=== PATIENT | female | born 1990 | race Two or more races ===

== ENCOUNTER 2024-10-06 14:20 | Emergency (ER) | payer MEDICAID, SELFPAY ==
[2024-10-06 14:21] VITALS: BMI 43.4
[2024-10-06 14:27] VITALS: BP 142/83; PULSE 117; RESP 19; TEMP 39.2; O2SAT 99
--- NOTE | 2024-10-06 14:39 | XR_ITS ---
Examination: PA lateral chest 2 views Technique: Upright PA lateral chest 2 views Exam date and time: October 06, 2024 1500 hrs. Indications: Coughing 5 days Findings: Pneumonia in the lingular segment left upper lobe Normal heart size Right lung clear Intact osseous structures Impression: Pneumonia lingular segment left upper lobe
--- NOTE | 2024-10-06 14:39 | XR_ITS ---
Examination: CT brain head without contrast. 2-D sagittal coronal reconstructions Date and time of exam:October 06, 2024 1445 hrs. Indications: Onset generalized head pain today CTDI: vol (mGy):52.4 DLP: (mGycm):953 Technique: Multiple CT axial sections of the brain have been obtained, 5 mm slice thickness. Contrast has not been administered. 2-D sagittal, coronal reconstructions have been obtained Low dose protocols were performed. One or more of the following dose reduction techniques were used; automated exposure control, adjustment of the mA and/or KV according to patient size, use of iterative reconstruction technique. Findings: No significant ventricular enlargement. Intra-axial or extra-axial hemorrhage density is not seen. No mass effect or midline shift Basal cisterns are not remarkable. Fourth ventricle is midline. Cranial vault intact. Impression: Negative for acute hemorrhage, mass effect or midline shift
--- NOTE | 2024-10-06 14:40 | PD.EDRME ---
Rapid Medical Screening Exam RME Arrival date/time: 10/06/24 14:20 34-year-old female presents emergency department complaints of fever, cough, headache, nasal congestion and bodyaches Chief Complaint: Flu Like Symptoms Vital signs: Vital Signs Temperature 102.5 F H 10/06/24 14:27 Pulse Rate 117 H 10/06/24 14:27 Respiratory Rate 19 10/06/24 14:27 Blood Pressure 142/83 H 10/06/24 14:27 Pulse Oximetry (%) 99 10/06/24 14:27 Oxygen Delivery Method Room Air 10/06/24 14:27
[2024-10-06 14:42] VITALS: TEMP 39.2
[2024-10-06] MEDS: ACETAMINOPHEN 500 MG TABLET 1000 MG PO (14:42)
[2024-10-06 15:22] LABS: Lactate (Lactic Acid) 2.4 mMol/L (0.4-2.0)
[2024-10-06 15:23] LABS: Basophils % (Auto) 0 % (0-2.5); Eosinophils # (Auto) 0.1 Thou/mm3 (0.0-0.5); Eosinophils % (Auto) 1 % (0-10); Hematocrit 40.3 % (36.0-46.0); Hemoglobin 13.2 g/dL (12.0-16.0); Immature Granulocytes % (Auto) 0 % (0-0); Immature Granulocytes Auto 0.02 Thou/mm3 (0.00-0.00); Lymphocytes # (Auto) 1.8 Thou/mm3 (1.0-4.8); Lymphocytes % (Auto) 23 % (10-50); Mean Corpuscular HGB Conc 32.8 g/dl (31.0-37.0); Mean Corpuscular Hemoglobin 27.5 pg (25.0-35.0); Mean Corpuscular Volume 84 fL (80-100); Monocytes # (Auto) 0.6 Thou/mm3 (0.0-0.8); Monocytes % (Auto) 7 % (0-12); Neutrophils # (Auto) 5.3 Thou/mm3 (1.8-7.7); Neutrophils % (Auto) 68 % (37-80); Nucleated Red Blood Cell % 0 /100 WBC (0); Platelet Count 290 Thou/mm3 (140-440); RDW Standard Deviation 41.1 fL (36.4-46.3); White Blood Count 7.8 Thou/mm3 (3.6-11.0)
[2024-10-06 16:03] LABS: Alanine Aminotransferase 24 U/L (10-49); Albumin, Serum 4.3 gm/dL (3.5-5.0); Albumin/Globulin Ratio 1.5 (1.2-2.2); Alkaline Phosphatase 80 U/L (46-116); Anion Gap 5 (7-16); Aspartate Amino Transferase 20 U/L (0-34); BUN/Creatinine Ratio 8 Ratio (12-20); Bilirubin,Total 0.4 mg/dL (0.3-1.2); Blood Urea Nitrogen 6 mg/dL (9-23); Calcium 9.1 mg/dL (8.3-10.6); Calcium (Corrected) 9.1 mg/dL (8.5-10.1); Carbon Dioxide 26.9 mMol/L (20.0-31.0); Chloride 104 mMol/L (98-107); Creatinine (Component) 0.8 mg/dL (0.6-1.3); Estimated Creatinine Clearance 112.2 mL/min (>60); Globulin 2.8 gm/dL (2.3-3.5); Glucose 146 mg/dL (74-106); Osmolality,Calculated 272 (275-295); Potassium 3.7 mMol/L (3.4-5.1); Procalcitonin 0.05 ng/ml (0.0-0.49); Sodium 136 mMol/L (136-145); Total Protein 7.1 gm/dL (5.7-8.2); eGFR > 60 See Note
--- NOTE | 2024-10-06 17:25 | PD.EDURI ---
Upper Respiratory Inf. RME/HPI General Chief Complaint: Flu Like Symptoms Stated Complaint: left facial swelling with cough and headache Time Seen by Provider: 10/06/24 17:25 Arrival date/time: 10/06/24 14:20 34-year-old female presents emergency department complaints of fever, cough, headache, nasal congestion and bodyaches Limitations: no limitations RME / HPI RME / HPI Narrative: 10/06/24 14:20 34-year-old female presents emergency department complaints of fever, cough, headache, nasal congestion and bodyaches Related Data Home Medications ?Medication ?Instructions ?Recorded ?Confirmed vit no.95-ferrous 1 tab PO QDAY 08/23/19 05/29/23 fumarate 28 mg-folic acid 800 mcg tablet () Previous Rx's ?Medication ?Instructions ?Recorded amoxicillin 875 mg-potassium 1 tab PO BID 7 days #14 tabs 10/06/24 clavulanate 125 mg tablet benzonatate 100 mg capsule 100 mg PO TID #14 caps 10/06/24 ibuprofen 800 mg tablet 800 mg PO TID PRN pain #30 tabs 10/06/24 Allergies Allergy/AdvReac Type Severity Reaction Status Date / Time No Known Allergies Allergy Verified 10/06/24 14:23 Review of Systems Review of Systems Systems Reviewed: All systems reviewed, normal except as documented Constitutional Constitutional: Reports system reviewed and no additional complaints, except as documented, Reports body ache(s), Reports fever(s) and Reports headache(s) Eyes Eyes: Reports system reviewed and no additional complaints, except as documented and Denies blurry vision ENT Ears, Nose, Mouth, and Throat: Reports system reviewed and no additional complaints, except as documented, Reports headache(s), Reports nasal congestion and Reports nasal discharge Cardiovascular Cardiovascular: Reports system reviewed and no additional complaints, except as documented, Denies chest pain and Denies dyspnea Respiratory Respiratory: Reports system reviewed and no additional complaints, except as documented, Reports chest congestion, Reports cough and Denies dyspnea Gastrointestinal Gastrointestinal: Reports system reviewed and no additional complaints, except as documented and Denies abdominal pain Integumentary/Breasts Skin/Breast: Reports system reviewed and no additional complaints, except as documented and Denies rash Neurologic Neurologic: Reports system reviewed and no additional complaints, except as documented, Reports as per HPI and Reports headache(s) Past Medical History Past Medical History NEUROLOGIC: Negative Neurological Disorders CARDIAC: Negative Cardiac Disorders ED Exam General Limitations: Present no limitations General appearance: Present alert and in no apparent distress Head Head exam: Present atraumatic, normocephalic and normal inspection Eye Eye exam: Present normal appearance, PERRL and EOMI; Absent conjunctival injection ENT ENT exam: Present normal exam, normal oropharynx and mucous membranes moist Neck Neck exam: Present normal inspection, full ROM and trachea midline Chest Chest inspection: Present normal inspection and symmetric chest wall rise Respiratory Respiratory exam: Present normal lung sounds bilaterally; Absent respiratory distress, wheezes, stridor, accessory muscle use or prolonged expiratory phase Cardiovascular Cardiovascular exam: Present regular rate, normal rhythm and normal heart sounds Abdominal Exam Abdominal exam: Present soft and normal bowel sounds; Absent distention or tenderness Extremities Exam Extremities exam: Present normal inspection and full ROM Back Exam Back exam: Present normal inspection and full ROM Neurological Exam Neurological exam: Present alert, oriented X3 and CN II-XII intact Psychiatric Psychiatric exam: Present normal affect and normal mood Skin Skin exam: Present warm, dry, intact and normal color Course Quality Measures none Orders Category Date Time Status Bedside COVID-19 Antigen Test NOW Care 10/06/24 14:34 Completed Bedside Influenza A&B Antigen Test NOW Care 10/06/24 14:[address] head/brain wo con Stat Exams 10/06/24 14:39 Completed XR chest 2V Stat Exams 10/06/24 14:39 Completed Blood Culture (Lab) Stat Lab 10/06/24 15:00 Received CBC Stat Lab 10/06/24 14:57 Completed Comprehensive Metabolic Panel Stat Lab 10/06/24 14:57 Completed Lactate (Lactic Acid) Stat Lab 10/06/24 14:57 Completed Procalcitonin Stat Lab 10/06/24 14:57 Completed Urinalysis Stat Lab 10/06/24 17:01 Completed Urine Culture Stat Lab 10/06/24 17:01 Received Acetaminophen Tab [Tylenol ES Tab] Med 10/06/24 14:40 Discontinued 1,000 mg PO X1 ONE Lidocaine 1% 20 ml [Xylocaine 1% 20 ML] Med 10/06/24 17:25 Discontinued 2.1 ml INFL X1 ONE cefTRIAXone [Rocephin] Med 10/06/24 17:25 Discontinued 1,000 mg IM X1 ONE Vital Signs Vital signs: Vital Signs Temperature 102.5 F H 10/06/24 14:27 Pulse Rate 117 H 10/06/24 14:27 Respiratory Rate 19 10/06/24 14:27 Blood Pressure 142/83 H 10/06/24 14:27 Pulse Oximetry (%) 99 10/06/24 14:27 Oxygen Delivery Method Room Air 10/06/24 14:27 O2 saturation 99% room air within normal limits Upper Respiratory Infection MDM Narrative MDM Narrative:: 34-year-old female presents emergency department complaints of fever, cough, headache, nasal congestion and bodyaches Based on patient's vital signs sepsis alert was initiated procalcitonin is normal lactic acid mildly elevated patient has no leukocytosis Although the patient's lactic acid is elevated patient has no leukocytosis clinically patient does not appear septic Lab work chest x-ray and head CT obtained Head CT is negative X-ray consistent with pneumonia Lab work unremarkable Patient given Rocephin here in the emergency department discharged home with At time of discharge patient afebrile nontoxic patient walks with steady gait Patient discharged home in no distress to follow-up with primary care doctor in the next 24 to 48 hours and for any worsening symptoms to return to the ER immediately Patient data External records reviewed:: [facility] previous records Clinical information provided by:: patient Social determinants that could affect healthcare access:: none Patient has the following chronic illnesses:: None How is presenting disease/condition affected by chronic disease/condition?: no chronic disease Evaluation data The following diagnostics were reviewed and interpreted by me:: lab results and radiology exam(s) Lab and/or radiology exams considered but not ordered:: Labs and radiology obtained Interpretation Summary: Reviewed by me Medications / Prescriptions Medications or Prescriptions considered but not ordered:: Given Medication administrations:: Medication Administration History Discontinued Medications Acetaminophen (Acetaminophen 500 Mg Tablet) 1,000 mg PO X1 ONE Stop: 10/06/24 14:41 Last Admin: 10/06/24 14:42 Dose: 1,000 mg Documented By: Ceftriaxone Sodium (Ceftriaxone Sod Inj 1,000 Mg Vial) 1,000 mg IM X1 ONE Stop: 10/06/24 17:26 Last Admin: 10/06/24 17:34 Dose: 1,000 mg Documented By: Lidocaine HCl (Lidocaine Hcl 1% 20 Ml Vial) 2.1 ml INFL X1 ONE Stop: 10/06/24 17:26 Last Admin: 10/06/24 17:35 Dose: 2.1 ml Documented By: Given Consultations Consultation(s) initiated? (list below): No Diagnosis Upper Respiratory Differential Diagnosis: upper respiratory infection, sinusitis, viral infection and bronchitis Most likely diagnosis given after review of the tests above:: Pneumonia Admission Indicated Admission indicated?: not indicated Admission Request Was there a request for admission?: No Disposition Plan Disposition Plan: Discharge Discharge Attestation Discharge Attestation: The patient and all family members were given an opportunity to ask questions and understood the discharge instructions. Discharge instructions specifically effects, indications for sooner follow up or return to the emergency department, and the expected course of current diagnosis. Patient condition: Stable Discharge Plan Plan Patient Disposition: HOME (Self Care) Disposition Comment: Stable Prescriptions/Referrals Prescriptions/Med Rec: New ibuprofen 800 mg tablet 800 mg PO TID PRN (Reason: pain) Qty: 30 0RF benzonatate 100 mg capsule 100 mg PO TID Qty: 14 0RF amoxicillin-pot clavulanate 875-125 mg tablet 1 tab PO BID 7 Days Qty: 14 0RF No Action PNV cmb#95-ferrous fumarate-FA [] 28 mg iron- 800 mcg Tablet 1 tab PO QDAY Referrals: Kadeem Cunha MD [Primary Care Provider] - 10/07/24 Problem List Clinical Impression: Pneumonia Patient/Caregiver Discharge Instructions Education Materials: ED Pneumonia (Adult) Additional Instructions: Please follow up with your primary care doctor in the next 24-48hrs for any worsening symptoms return here immediately Print Language: Turkmen Stand Alone Forms: Albertina Award Info., Work/School Release, Patient Portal Info Letter PA/JUAN PABLO Supervising Physician PA/JUAN PABLO Supervising Physician: Dr. Waller
[2024-10-06 17:26] LABS: Collection Type, Urine Clean Catch
[2024-10-06] MEDS: cefTRIAXone SOD INJ 1,000 MG VIAL 1000 MG IM (17:34)
[2024-10-06] MEDS: LIDOCAINE HCL 1% 20 ML VIAL 2.1 ML INFL (17:35)
[2024-10-06 17:41] VITALS: TEMP 37.4
[2024-10-06 17:45] LABS: Bacteria,Urine Rare; Bilirubin,Urine Negative (Negative); Blood,Urine Negative (Negative); Clarity,Urine Clear (Clear/Hazy); Color,Urine Colorless (Lt Yel-Yel); Glucose, Urine Negative (Negative); Ketones,Urine Negative (Negative); Leukocyte Esterase,Urine Negative (Negative); Nitrite,Urine Negative (Negative); PH,Urine 6.5 (5.0-7.0); Protein,Urine Negative (Neg - Trace); RBC,Urine < 1 /hpf (0-3); Specific Gravity,Urine 1.004 (1.001-1.035); Squamous Epithelial Cell,Urine 4 /hpf (0-5); Urobilinogen,Urine Negative mg/dL (0.0-1.0); WBC,Urine 1 /hpf (0-5)
[2024-10-06 17:58] VITALS: TEMP 37.4
[2024-10-06 18:18] LABS: Reflex Lactate? Y
== END 2024-10-06 17:59 | disposition home or self-care (01) ==
PROVIDERS: Nurse Practitioner Primary Care; Emergency Provider Emergency Medicine; PCP Family Medicine
DX: J18.9 Pneumonia, unspecified organism (principal); R51.9 Headache, unspecified
CPT/HCPCS: 36415; 70450; 71046; 80053; 81001; 83605; 84145; 85025; 87040; 87086; 87400; 87811; 96372; 99284; J0696; J3490; A9270

== ENCOUNTER 2024-10-15 14:33 | Emergency (ER) | payer MEDICAID, SELFPAY ==
[2024-10-15 15:01] VITALS: BP 124/87; PULSE 87; RESP 18; TEMP 36.9; O2SAT 99; BMI 43.4
--- NOTE | 2024-10-15 15:02 | XR_ITS ---
Examination: PA lateral chest 2 views TECHNIQUE: Upright PA lateral chest 2 views Exam date and time: October 15, 2024 1507 hours INDICATIONS: Difficulty breathing one week. FINDINGS: Significant pneumonia left upper lobe and lingular segment left upper lobe Normal heart size No pulmonary edema IMPRESSION: Significant left lung pneumonia
--- NOTE | 2024-10-15 16:05 | EDNOTE_ITS ---
ED SOB =RME/HPI General Chief Complaint: Shortness of Breath/Dyspnea Stated Complaint: SOB, COUGH, PHLEGM, STIFF NECK, LINDSAY, WHEEZING Time Seen by Provider: 10/15/24 14:40 Arrival date/time: 10/15/24 14:33 34-year-old female recently treated with antibiotics for pneumonia presents emergency department complains of cough, congestion headache and bodyaches patient primary concern is cough and congestion Limitations: no limitations Related Data Home Medications ?Medication ?Instructions ?Recorded ?Confirmed vit no.95-ferrous 1 tab PO QDAY 08/23/19 05/29/23 fumarate 28 mg-folic acid 800 mcg tablet () Previous Rx's ?Medication ?Instructions ?Recorded benzonatate 100 mg capsule 100 mg PO TID #14 caps 10/06/24 ibuprofen 800 mg tablet 800 mg PO TID PRN pain #30 tabs 10/06/24 ibuprofen 800 mg tablet 800 mg PO TID PRN pain #30 tabs 10/15/24 levofloxacin 750 mg tablet 750 mg PO Q24H 5 days #5 tabs 10/15/24 promethazine-DM 6.25 mg-15 mg/5 mL 5 ml PO Q6H PRN cough #240 mL 10/15/24 oral syrup Allergies Allergy/AdvReac Type Severity Reaction Status Date / Time No Known Allergies Allergy Verified 10/06/24 14:23 Review of Systems Review of Systems Systems Reviewed: All systems reviewed, normal except as documented Constitutional Constitutional: Reports system reviewed and no additional complaints, except as documented, Denies fever(s) and Denies headache(s) Eyes Eyes: Reports system reviewed and no additional complaints, except as documented and Denies blurry vision ENT Ears, Nose, Mouth, and Throat: Reports system reviewed and no additional complaints, except as documented, Denies headache(s), Denies nasal congestion and Denies nasal discharge Cardiovascular Cardiovascular: Reports system reviewed and no additional complaints, except as documented, Denies chest pain and Denies dyspnea Respiratory Respiratory: Reports system reviewed and no additional complaints, except as documented, Reports chest congestion, Reports cough and Denies dyspnea Gastrointestinal Gastrointestinal: Reports system reviewed and no additional complaints, except as documented and Denies abdominal pain Integumentary/Breasts Skin/Breast: Reports system reviewed and no additional complaints, except as documented and Denies rash Neurologic Neurologic: Reports system reviewed and no additional complaints, except as documented, Reports as per HPI and Denies headache(s) Past Medical History Past Medical History NEUROLOGIC: Negative Neurological Disorders or Seizures CARDIAC: Negative Cardiac Disorders or Congestive Heart Failure RESPIRATORY: Negative Chronic Obstructive Pulmonary Disease (COPD) GASTROINTESTINAL: Negative Gastrointestinal Disorders, Hepatitis or Colorectal Cancer GENITOURINARY: Negative Genitourinary Disorders, Renal Disease or Prostate Cancer REPRODUCTIVE: Positive Previous Pregnancies; Negative Breast Cancer or Testicular Cancer MUSCULOSKELETAL: Negative Musculoskeletal Disorders or Bone Cancer ENDOCRINE: Positive Endocrine Disorders; Negative Diabetes Mellitus Type 1 or Diabetes Mellitus Type 2 HEMATOLOGIC: Positive Anemia (CURRENTLY TAKING IRON); Negative Blood Disorders PSYCHO/SOCIAL: Positive Depression (MEDICATION WAS TAKEN WITH PRIOR PREG) OTHER HISTORY: Positive Hospitalization (CHILDBIRTH) and Chicken Pox; Negative Autoimmune Disease, Down Syndrome, Developmental Delay, Shingles, Falls, Blood Transfusions, Blood Transfusion Reaction, Anesthesia Reactions, Organ Transplant, Chemotherapy, Radiation Therapy, Hyperbaric Therapy, Human Immunodeficiency Virus (HIV), Measles, Mumps, Rubella (Turkmen Measles), Pertussis, Clostridium Difficile, Cancer, Breast Cancer, Cervical Cancer, Colorectal Cancer, Lung Cancer, Ovarian Cancer, Prostate Cancer or Testicular Cancer Family History FAMILY HISTORY: Negative Family Psychiatric Problems, Family Respiratory Disorders, Family Cardiac Disorders, Family Gastrointestinal Problems, Family Cancer, Family Surgery or Family Anesthesia Reaction Surgical History SURGICAL: Negative Section or Organ Transplant Social History SMOKING STATUS: Never smoker SECOND HAND EXPOSURE: No SUBSTANCE USE: does not use 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 ED Exam General Limitations: Present no limitations General appearance: Present alert and in no apparent distress Head Head exam: Present atraumatic Eye Eye exam: Present normal appearance, PERRL and EOMI ENT ENT exam: Present normal exam, normal oropharynx and mucous membranes moist Neck Neck exam: Present normal inspection, full ROM and trachea midline Chest Chest inspection: Present normal inspection and symmetric chest wall rise Respiratory Respiratory exam: Present other (Left upper lobe rhonchi); Absent wheezes, stridor, accessory muscle use or prolonged expiratory phase Cardiovascular Cardiovascular exam: Present regular rate, normal rhythm and normal heart sounds Abdominal Exam Abdominal exam: Present soft and normal bowel sounds Extremities Exam Extremities exam: Present normal inspection and full ROM Back Exam Back exam: Present normal inspection and full ROM Neurological Exam Neurological exam: Present alert, oriented X3 and CN II-XII intact Psychiatric Psychiatric exam: Present normal affect and normal mood Skin Skin exam: Present warm, dry, intact and normal color Course Quality Measures none Orders Category Date Time Status Bedside COVID-19 Antigen Test NOW Care 10/15/24 15:02 Completed Bedside Influenza A&B Antigen Test NOW Care 10/15/24 15:02 Completed XR chest 2V Stat Exams 10/15/24 15:02 Completed Cocci Serology IgM with reflex to IgG [Cocci Serology, Lab 10/15/24 15:59 Received Unk History] Stat Lidocaine 1% 20 ml [Xylocaine 1% 20 ML] Med 10/15/24 16:03 Discontinued 2.1 ml INFL X1 ONE cefTRIAXone [Rocephin] Med 10/15/24 16:03 Discontinued 1,000 mg IM X1 ONE Vital Signs Vital signs: Vital Signs Temperature 98.5 F 10/15/24 15:01 Pulse Rate 87 10/15/24 15:01 Respiratory Rate 18 10/15/24 15:01 Blood Pressure 124/87 H 10/15/24 15:01 Pulse Oximetry (%) 99 10/15/24 15:01 Oxygen Delivery Method Room Air 10/15/24 15:01 O2 saturation 99% room air within normal limits Shortness of Breath / Dyspnea MDM Narrative MDM Narrative:: 34-year-old female recently treated with antibiotics for pneumonia presents emergency department complains of cough, congestion headache and bodyaches patient primary concern is cough and congestion On exam patient well-appearing patient does not appear ill or toxic patient does not appear in acute distress patient has no tachypnea no dyspnea no increased work of breathing patient reports he has no fever no night sweats no hemoptysis Radiology obtained patient's pneumonia has worsened from previous visit Patient given Rocephin here cocci ordered and is pending Explained to the patient I like her to return tomorrow for repeat Rocephin injection Patient data External records reviewed:: [facility] previous records Clinical information provided by:: patient Social determinants that could affect healthcare access:: none Patient has the following chronic illnesses:: None How is presenting disease/condition affected by chronic disease/condition?: no chronic disease Evaluation data The following diagnostics were reviewed and interpreted by me:: radiology exam(s) Lab and/or radiology exams considered but not ordered:: Radiology obtain Interpretation Summary: Reviewed by me Medications / Prescriptions Medications or Prescriptions considered but not ordered:: Given Medication administrations:: Medication Administration History Discontinued Medications Ceftriaxone Sodium (Ceftriaxone Sod Inj 1,000 Mg Vial) 1,000 mg IM X1 ONE Stop: 10/15/24 16:04 Last Admin: 10/15/24 16:15 Dose: 1,000 mg Documented By: TORIBIO Lidocaine HCl (Lidocaine Hcl 1% 20 Ml Vial) 2.1 ml INFL X1 ONE Stop: 10/15/24 16:04 Last Admin: 10/15/24 16:15 Dose: 2.1 ml Documented By: TORIBIO Given Consultations Consultation(s) initiated? (list below): No Diagnosis Shortness of Breath Differential Diagnosis: acute exacerbation of chronic obstructive airways disease, congestive heart failure, community acquired pneumonia and asthma with exacerbation Most likely diagnosis given after review of the tests above:: Pneumonia Admission Indicated Admission indicated?: not indicated Admission Request Was there a request for admission?: No Disposition Plan Disposition Plan: Discharge Discharge Attestation Discharge Attestation: The patient and all family members were given an opportunity to ask questions and understood the discharge instructions. Discharge instructions specifically effects, indications for sooner follow up or return to the emergency department, and the expected course of current diagnosis. Patient condition: Stable Discharge Plan Plan Patient Disposition: HOME (Self Care) Disposition Comment: Stable Prescriptions/Referrals Prescriptions/Med Rec: New promethazine-DM 6.25-15 mg/5 mL syrup 5 ml PO Q6H PRN (Reason: cough) Qty: 240 0RF ibuprofen 800 mg tablet 800 mg PO TID PRN (Reason: pain) Qty: 30 0RF levofloxacin 750 mg tablet 750 mg PO Q24H 5 Days Qty: 5 0RF No Action PNV cmb#95-ferrous fumarate-FA [] 28 mg iron- 800 mcg Tablet 1 tab PO QDAY ibuprofen 800 mg tablet 800 mg PO TID PRN (Reason: pain) Qty: 30 0RF benzonatate 100 mg capsule 100 mg PO TID Qty: 14 0RF Referrals: No Primary/Family,Physician [Primary Care Provider] - In 1 week Problem List Clinical Impression: Pneumonia Patient/Caregiver Discharge Instructions Education Materials: ED Pneumonia (Adult) Additional Instructions: Please return tomorrow for repeat injection of Rocephin for worsening symptoms return immediately Print Language: Mexican Stand Alone Forms: Albertina Award Info., Work/School Release, Patient Portal Info Letter PA/JUAN PABLO Supervising Physician PA/JUAN PABLO Supervising Physician: Dr. Liang
[2024-10-15] MEDS: LIDOCAINE HCL 1% 20 ML VIAL 2.1 ML INFL (16:15)
[2024-10-15] MEDS: cefTRIAXone SOD INJ 1,000 MG VIAL 1000 MG IM (16:15)
[2024-10-16 13:33] LABS: Cocci Serology, IgM Negative (Negative)
[2024-10-17 13:55] LABS: Cocci Serology, IgG Negative (Negative)
== END 2024-10-15 16:19 | disposition home or self-care (01) ==
PROVIDERS: Nurse Practitioner Primary Care; Emergency Provider Emergency Medicine
DX: J18.9 Pneumonia, unspecified organism (principal)
CPT/HCPCS: 36415; 71046; 86331; 86480; 86635; 87400; 87811; 96372; 99283; J0696; J3490

== ENCOUNTER 2024-10-16 09:33 | Emergency (ER) | payer MEDICAID, SELFPAY ==
[2024-10-16 09:55] VITALS: BP 113/73; PULSE 82; RESP 18; TEMP 37; O2SAT 95; BMI 43.4
[2024-10-16] MEDS: cefTRIAXone SOD INJ 1,000 MG VIAL 1000 MG IM (10:04)
[2024-10-16] MEDS: LIDOCAINE HCL 1% 20 ML VIAL 2.1 ML INFL (10:05)
[2024-10-16 10:25] LABS: Quantiferon-TB* See Sep Rpt
--- NOTE | 2024-10-16 13:03 | EDNOTE_ITS ---
ED SOB =RME/HPI General Chief Complaint: Shortness of Breath/Dyspnea Stated Complaint: PNEUMONIA YESTERDAY ER; TOLD TO RETURN FOR ABX Time Seen by Provider: 10/16/24 09:50 Arrival date/time: 10/16/24 09:33 34-year-old female with current diagnosis of pneumonia presents emergency department today patient was instructed to return by myself for repeat Rocephin injection Limitations: no limitations Related Data Home Medications ?Medication ?Instructions ?Recorded ?Confirmed vit no.95-ferrous 1 tab PO QDAY 08/23/19 05/29/23 fumarate 28 mg-folic acid 800 mcg tablet () Previous Rx's ?Medication ?Instructions ?Recorded benzonatate 100 mg capsule 100 mg PO TID #14 caps 10/06/24 ibuprofen 800 mg tablet 800 mg PO TID PRN pain #30 tabs 10/06/24 ibuprofen 800 mg tablet 800 mg PO TID PRN pain #30 tabs 10/15/24 levofloxacin 750 mg tablet 750 mg PO Q24H 5 days #5 tabs 10/15/24 promethazine-DM 6.25 mg-15 mg/5 mL 5 ml PO Q6H PRN cough #240 mL 10/15/24 oral syrup Allergies Allergy/AdvReac Type Severity Reaction Status Date / Time No Known Allergies Allergy Verified 10/06/24 14:23 Review of Systems Review of Systems Systems Reviewed: All systems reviewed, normal except as documented Constitutional Constitutional: Reports system reviewed and no additional complaints, except as documented, Denies fever(s) and Denies headache(s) Eyes Eyes: Reports system reviewed and no additional complaints, except as documented and Denies blurry vision ENT Ears, Nose, Mouth, and Throat: Reports system reviewed and no additional complaints, except as documented, Denies headache(s), Denies nasal congestion and Denies nasal discharge Cardiovascular Cardiovascular: Reports system reviewed and no additional complaints, except as documented, Denies chest pain and Denies dyspnea Respiratory Respiratory: Reports system reviewed and no additional complaints, except as documented, Reports chest congestion, Reports cough and Denies dyspnea Gastrointestinal Gastrointestinal: Reports system reviewed and no additional complaints, except as documented and Denies abdominal pain Integumentary/Breasts Skin/Breast: Reports system reviewed and no additional complaints, except as documented and Denies rash Neurologic Neurologic: Reports system reviewed and no additional complaints, except as documented, Reports as per HPI and Denies headache(s) Past Medical History Past Medical History NEUROLOGIC: Negative Neurological Disorders or Seizures CARDIAC: Negative Cardiac Disorders or Congestive Heart Failure RESPIRATORY: Negative Chronic Obstructive Pulmonary Disease (COPD) GASTROINTESTINAL: Negative Gastrointestinal Disorders, Hepatitis or Colorectal Cancer GENITOURINARY: Negative Genitourinary Disorders, Renal Disease or Prostate Cancer REPRODUCTIVE: Positive Previous Pregnancies; Negative Breast Cancer or Testicular Cancer MUSCULOSKELETAL: Negative Musculoskeletal Disorders or Bone Cancer ENDOCRINE: Positive Endocrine Disorders; Negative Diabetes Mellitus Type 1 or Diabetes Mellitus Type 2 HEMATOLOGIC: Positive Anemia (CURRENTLY TAKING IRON); Negative Blood Disorders PSYCHO/SOCIAL: Positive Depression (MEDICATION WAS TAKEN WITH PRIOR PREG) OTHER HISTORY: Positive Hospitalization (CHILDBIRTH) and Chicken Pox; Negative Autoimmune Disease, Down Syndrome, Developmental Delay, Shingles, Falls, Blood Transfusions, Blood Transfusion Reaction, Anesthesia Reactions, Organ Transplant, Chemotherapy, Radiation Therapy, Hyperbaric Therapy, Human Immunodeficiency Virus (HIV), Measles, Mumps, Rubella (Portuguese Measles), Pertussis, Clostridium Difficile, Cancer, Breast Cancer, Cervical Cancer, Colorectal Cancer, Lung Cancer, Ovarian Cancer, Prostate Cancer or Testicular Cancer Family History FAMILY HISTORY: Negative Family Psychiatric Problems, Family Respiratory Disorders, Family Cardiac Disorders, Family Gastrointestinal Problems, Family Cancer, Family Surgery or Family Anesthesia Reaction Surgical History SURGICAL: Negative Section or Organ Transplant Social History SMOKING STATUS: Never smoker SECOND HAND EXPOSURE: No SUBSTANCE USE: does not use 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 ED Exam General Limitations: Present no limitations General appearance: Present alert and in no apparent distress Head Head exam: Present atraumatic Eye Eye exam: Present normal appearance, PERRL and EOMI ENT ENT exam: Present normal exam, normal oropharynx and mucous membranes moist Neck Neck exam: Present normal inspection, full ROM and trachea midline Chest Chest inspection: Present normal inspection and symmetric chest wall rise Respiratory Respiratory exam: Present normal lung sounds bilaterally; Absent respiratory distress Cardiovascular Cardiovascular exam: Present regular rate, normal rhythm and normal heart sounds Abdominal Exam Abdominal exam: Present soft and normal bowel sounds Extremities Exam Extremities exam: Present normal inspection and full ROM Back Exam Back exam: Present normal inspection and full ROM Neurological Exam Neurological exam: Present alert, oriented X3 and CN II-XII intact Psychiatric Psychiatric exam: Present normal affect and normal mood Skin Skin exam: Present warm, dry, intact and normal color Course Quality Measures none Orders Category Date Time Status Quantiferon-TB* Stat Lab 10/16/24 10:02 Received Lidocaine 1% 20 ml [Xylocaine 1% 20 ML] Med 10/16/24 09:51 Discontinued 2.1 ml INFL X1 ONE cefTRIAXone [Rocephin] Med 10/16/24 09:51 Discontinued 1,000 mg IM X1 ONE Vital Signs Vital signs: Vital Signs Temperature 98.6 F 10/16/24 09:55 Pulse Rate 82 10/16/24 09:55 Respiratory Rate 18 10/16/24 09:55 Blood Pressure 113/73 10/16/24 09:55 Pulse Oximetry (%) 95 10/16/24 09:55 Oxygen Delivery Method Room Air 10/16/24 09:55 O2 saturation 95% on room air within normal limits Shortness of Breath / Dyspnea MDM Narrative MDM Narrative:: 34-year-old female with current diagnosis of pneumonia presents emergency department today patient was instructed to return by myself for repeat Rocephin injection I reviewed the patient cocci cocci is negative Patient was given a repeat dose of Rocephin instructed to continue taking antibiotics at home quantiferon gold was ordered and is pending Patient discharged home in no distress to follow-up with primary care doctor in the next 24 to 48 hours and for any worsening symptoms to return to the ER immediately Patient data External records reviewed:: [facility] previous records Clinical information provided by:: patient Social determinants that could affect healthcare access:: none Patient has the following chronic illnesses:: None How is presenting disease/condition affected by chronic disease/condition?: no chronic disease Evaluation data The following diagnostics were reviewed and interpreted by me:: lab results (Labs ordered and are pending) and radiology exam(s) Lab and/or radiology exams considered but not ordered:: Radiology reviewed by me Interpretation Summary: Reviewed by me Medications / Prescriptions Medications or Prescriptions considered but not ordered:: Given Medication administrations:: Medication Administration History Discontinued Medications Ceftriaxone Sodium (Ceftriaxone Sod Inj 1,000 Mg Vial) 1,000 mg IM X1 ONE Stop: 10/16/24 09:52 Last Admin: 10/16/24 10:04 Dose: 1,000 mg Documented By: FARTUN Lidocaine HCl (Lidocaine Hcl 1% 20 Ml Vial) 2.1 ml INFL X1 ONE Stop: 10/16/24 09:52 Last Admin: 10/16/24 10:05 Dose: 2.1 ml Documented By: FARTUN Given Consultations Consultation(s) initiated? (list below): No Diagnosis Shortness of Breath Differential Diagnosis: acute exacerbation of chronic obstructive airways disease, congestive heart failure, community acquired pneumonia, asthma with exacerbation and pulmonary embolism Most likely diagnosis given after review of the tests above:: Pneumonia Admission Indicated Admission indicated?: not indicated Admission Request Was there a request for admission?: No Disposition Plan Disposition Plan: Discharge Discharge Attestation Discharge Attestation: The patient and all family members were given an opportunity to ask questions and understood the discharge instructions. Discharge instructions specifically effects, indications for sooner follow up or return to the emergency department, and the expected course of current diagnosis. Patient condition: Stable Discharge Plan Plan Patient Disposition: HOME (Self Care) Disposition Comment: Stable Prescriptions/Referrals Prescriptions/Med Rec: No Action PNV cmb#95-ferrous fumarate-FA [] 28 mg iron- 800 mcg Tablet 1 tab PO QDAY ibuprofen 800 mg tablet 800 mg PO TID PRN (Reason: pain) Qty: 30 0RF benzonatate 100 mg capsule 100 mg PO TID Qty: 14 0RF promethazine-DM 6.25-15 mg/5 mL syrup 5 ml PO Q6H PRN (Reason: cough) Qty: 240 0RF ibuprofen 800 mg tablet 800 mg PO TID PRN (Reason: pain) Qty: 30 0RF levofloxacin 750 mg tablet 750 mg PO Q24H 5 Days Qty: 5 0RF Problem List Clinical Impression: Pneumonia, Cough Patient/Caregiver Discharge Instructions Education Materials: ED Pneumonia (Adult) Additional Instructions: Please follow up with your primary care doctor in the next 24-48hrs for any worsening symptoms return here immediately Your QuantiFERON TB test is pending as well as your coccidiomycosis test please follow-up for results Please take all medication as prescribed Print Language: Bengali Stand Alone Forms: Albertina Award Info., Patient Portal Info 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 Liang
== END 2024-10-16 10:09 | disposition home or self-care (01) ==
LOC: SERX 10:10
PROVIDERS: Nurse Practitioner Primary Care; Emergency Provider Emergency Medicine; PCP Family Medicine
DX: J18.9 Pneumonia, unspecified organism (principal)
CPT/HCPCS: 86480; 96372; 99283; J0696; J3490